=== PATIENT | male | born 2000 | race Caucasian/White ===

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

== ENCOUNTER → 2022-05-19 | Outpatient (CLI) | payer OTHER ==
[2022-05-19 13:29] LABS: BASO % 0.5 % (0.0-1.0); EOS # 0.1 10^3/uL (0.0-0.5); EOS % 1.3 % (0.0-3.0); HEMATOCRIT 43.2 % (42.0-52.0); HEMOGLOBIN 14.6 g/dl (13.5-17.5); LYMPH % 23.1 % (24.0-44.0); MEAN CORPUSCULAR HEMOGLOBIN 31.7 pg (27.0-33.0); MEAN CORPUSCULAR HGB CONC 33.8 g/dl (32.0-36.5); MEAN CORPUSCULAR VOLUME 93.9 fl (80.0-96.0); MONO # 0.7 10^3/uL (0.0-0.8); MONO % 8.1 % (2.0-8.0); NEUTROPHILS # 5.9 10^3/uL (1.5-8.5); NEUTROPHILS % 66.7 % (36.0-66.0); PLATELET COUNT, AUTOMATED 252 10^3/uL (150-450); WHITE BLOOD COUNT 8.8 10^3/uL (4.0-10.0)
[2022-05-19 13:52] LABS: ALBUMIN 3.6 GM/DL (3.2-5.2); ALT/SGPT 35 U/L (12-78); BILIRUBIN,DIRECT 0.1 MG/DL (0.0-0.2); BILIRUBIN,TOTAL 0.3 MG/DL (0.2-1.0); BLOOD UREA NITROGEN 8 MG/DL (7-18); CARBON DIOXIDE LEVEL 27 MEQ/L (21-32); CHLORIDE LEVEL 105 MEQ/L (98-107); CHOLESTEROL LEVEL 195 MG/DL (<200); CHOLESTEROL RISK RATIO 3.679 (<5); CREATININE FOR GFR 0.95 MG/DL (0.70-1.30); GLUCOSE, FASTING 134 MG/DL (70-100); HDL CHOLESTEROL 53 MG/DL (>40); LDL CHOLESTEROL 114 MG/DL (<100); NON-HDL-C 142 MG/DL; POTASSIUM SERUM 3.9 MEQ/L (3.5-5.1); SODIUM LEVEL 139 MEQ/L (136-145); TOTAL PROTEIN 6.7 GM/DL (6.4-8.2); TRIGLYCERIDES LEVEL 138 MG/DL (<150)
== END ==
LOC: M LAB 12:55
PROVIDERS: ATTEND Psychiatry & Neurology Psychiatry
DX: F29 Unspecified psychosis not due to a substance or known physiological condition (principal)

== ENCOUNTER → 2025-01-20 | Outpatient (CLI) | payer OTHER ==
[~2025-01-20] MED LIST changes: -ARIP1TAB43; -ARIP1TAB43 PO; +ARIP20TA51; +ARIP20TA51 PO; +FLUO-290; +FLUO-290 PO; +FLUO-365 PO; -FLUO10CA18; -FLUO10CA18 PO; -FLUO20CA22 PO
[2025-01-20 16:05] LABS: HEPATITIS B SURFACE ANTIGEN NEGATIVE (NEGATIVE)
[2025-01-20 16:26] LABS: HEPATITIS C VIRUS ABY INDEX 0.03 INDEX (<0.8)
[2025-01-20 16:27] LABS: HEPATITIS B CORE ANTIBODY IGM NEGATIVE (NEGATIVE)
== END ==
LOC: M PLALAB 12:14
DX: R11.2 Nausea with vomiting, unspecified (principal)

== ENCOUNTER 2025-09-28 13:35 | Inpatient (IN) | payer OTHER ==
[~2025-09-28] VITALS: Ht 167.6 cm; Wt 59.1 kg
[~2025-09-28 13:35] MED LIST changes: +ALPR-516 PO; -ALPR1TAB6 PO
[2025-09-28 14:24] LABS: PLATELET COUNT, AUTOMATED 367 10^3/uL (150-450)
[2025-09-28 14:50] LABS: AMPHETAMINES LEVEL URINE NEGATIVE (NEGATIVE); BARBITURATES URINE NEGATIVE (NEGATIVE); BENZODIAZEPINES URINE NEGATIVE (NEGATIVE); COCAINE METABOLITE URINE NEGATIVE (NEGATIVE); METHADONE URINE NEGATIVE (NEGATIVE); OPIATES URINE NEGATIVE (NEGATIVE); PHENCYCLIDINE URINE NEGATIVE (NEGATIVE)
[2025-09-28 14:52] LABS: ETHYL ALCOHOL (ETHANOL) 0.145 % (0.000-0.010)
[2025-09-28 14:54] LABS: ALT/SGPT 64 U/L (7.0-40); AST/SGOT 65 U/L (<34); CALCIUM LEVEL 9.2 MG/DL (8.5-10.1); CANNABINOIDS URINE POSITIVE (NEGATIVE); CARBON DIOXIDE LEVEL 25 MMOL/L (20-31); CHLORIDE LEVEL 105 MMOL/L (98-107); CREATININE FOR GFR 0.66 MG/DL (0.70-1.30); GLOMERULAR FILTRATION RATE > 90.0 (>60); POTASSIUM SERUM 4.0 MMOL/L (3.5-5.1); SALICYLATE LEVEL < 3.0 MG/DL (<30); SODIUM LEVEL 141 MMOL/L (136-145)
[2025-09-28] MEDS: OMEPRAZOLE 20MG CAP PO SCH (16:00)
[2025-09-28] MEDS: LURASIDONE HCL 40 MG TAB PO SCH (16:00)
[2025-09-28] MEDS ORDERED: FLUO40CA PO (19:34)
[2025-09-28] MEDS ORDERED: VITA1CAP25 PO (19:34)
[2025-09-28] MEDS ORDERED: LAMO-18 PO (19:34)
[2025-09-28] MEDS ORDERED: LATU40TA2 PO (19:34)
[2025-09-28] MEDS ORDERED: LINZ145C PO (19:34)
[2025-09-28] MEDS ORDERED: POTA10CA70 PO (19:34)
[2025-09-28] MEDS ORDERED: OMEP40CA4 PO (19:34)
[2025-09-28] MEDS ORDERED: SUCR1TA PO (19:34)
[2025-09-28] MEDS ORDERED: HOME MED LIST COMPLETE! XX SCH (19:35)
[2025-09-28] MEDS ORDERED: MAALOX 30 ML SUSP *UDC PO PRN (19:45)
[2025-09-28] MEDS ORDERED: MOM 30 ML SUSPENSION UDC PO PRN (19:45)
[2025-09-28] MEDS ORDERED: ACETAMINOPHEN 325 MG TAB PO PRN (19:45)
[2025-09-28] MEDS: FLUoxetine 20 MG CAP PO SCH (20:01)
[2025-09-28] MEDS: CETIRIZINE 10 MG TAB PO SCH (20:01)
[2025-09-28] MEDS: lamoTRIgine 25 MG TAB PO SCH (20:02)
[2025-09-28 20:50] VITALS: BP 127/89; TEMP 97; O2SAT 99
[2025-09-29 06:24] VITALS: BP 131/64; TEMP 97.1; O2SAT 97
[2025-09-29] MEDS: LORazepam 1 MG TAB PO PRN (15:05)
[2025-09-29] MEDS: HALOPERIDOL 5 MG TAB PO PRN (15:06)
[2025-09-29 16:18] VITALS: BP 140/75; TEMP 98; O2SAT 99
[2025-09-30 06:16] VITALS: BP 102/69; TEMP 97; O2SAT 97
[2025-09-30] MEDS: NICOTINE POLACRILEX 2 MG GUM PO PRN (06:59)
[2025-09-30] MEDS: IBUPROFEN 400 MG TAB PO PRN (06:59)
[2025-09-30 07:54] LABS: CHOLESTEROL LEVEL 181.0 MG/DL (<200); CHOLESTEROL RISK RATIO 1.91 (<5); LDL CHOLESTEROL 72.6 MG/DL (<100); NON-HDL-C 86.4 MG/DL; TRIGLYCERIDES LEVEL 69.0 MG/DL (<150)
[2025-09-30] MEDS: NICOTINE 21 MG/24 HR 1 EA TRANSDERMAL TD SCH (10:26)
[2025-09-30] MEDS: LURASIDONE HCL 40 MG TAB PO SCH (15:39)
[2025-09-30] MEDS: PILL CUTTER 1 EACH XX PRN (15:40)
[2025-09-30 15:54] VITALS: BP 123/90; TEMP 98; O2SAT 99
[2025-09-30] MEDS: traZODone 50 MG TAB PO PRN (21:23)
[2025-10-01 06:27] VITALS: BP 112/66; TEMP 98; O2SAT 99
[2025-10-01] MEDS ORDERED: LATU40TA2 PO (10:15)
== END 2025-10-01 12:28 | disposition home or self-care (01) | DRG 750 ==
LOC: M ED 13:35 → M ED INP 19:42 → M PSY 20:30
PROVIDERS: ADMIT Psychiatry & Neurology Neurology; ATTEND Psychiatry & Neurology Psychiatry
DX: F25.0 Schizoaffective disorder, bipolar type (principal); R45.850 Homicidal ideations; F10.10 Alcohol abuse, uncomplicated; F41.1 Generalized anxiety disorder; F19.10 Other psychoactive substance abuse, uncomplicated; Z91.148 Patient's other noncompliance with medication regimen for other reason; Z79.899 Other long term (current) drug therapy